=== PATIENT | female | born 1965 | race Caucasian/White ===

== ENCOUNTER → 2018-04-02 | Outpatient (CLI) | payer OTHER ==
[~2018-04-02] VITALS: Ht 165.1 cm; Wt 70.2 kg
[~2018-04-02] MED LIST: ALENDRONATE SOD70 MG PO; ERGOCALCIF50000 UNIT PO
== END | disposition home or self-care (01) ==
LOC: AMB 10:24
PROC: 0DBN8ZX Excision of Sigmoid Colon, Via Natural or Artificial Opening Endoscopic, Diagnostic (ICD-10-PCS; principal; 2018-04-02)
PROC: 0DB58ZX Excision of Esophagus, Via Natural or Artificial Opening Endoscopic, Diagnostic (ICD-10-PCS; principal; 2018-04-02)
PROC: 0DB68ZX Excision of Stomach, Via Natural or Artificial Opening Endoscopic, Diagnostic (ICD-10-PCS; principal; 2018-04-02)
DX: D12.5 Benign neoplasm of sigmoid colon (principal); D13.0 Benign neoplasm of esophagus; K29.70 Gastritis, unspecified, without bleeding; Z80.0 Family history of malignant neoplasm of digestive organs
CPT/HCPCS: 88305; 88342 TC; 94640; J3010; J7643